=== PATIENT | female | born 1980 | race African-American/Black ===

== ENCOUNTER 2017-04-04 11:29 | Emergency (ER) | payer BC, OTHER ==
[~2017-04-04] VITALS: Ht 152.4 cm; Wt 94.3 kg
[~2017-04-04 11:29] MED LIST: AMOXICILLIN; AMOXICILLIN875 MG PO; IBUPROFEN 200200 M1 PO; NAPROSYN500 MG PO
[2017-04-04] MEDS ORDERED: NORCO 5-325 TA1 EACH PO (12:46)
[2017-04-04 13:17] VITALS: BP 145/112
== END 2017-04-04 13:18 | disposition home or self-care (01) ==
LOC: ER 11:29
DX: K43.9 Ventral hernia without obstruction or gangrene (principal); J45.909 Unspecified asthma, uncomplicated; F17.210 Nicotine dependence, cigarettes, uncomplicated

== ENCOUNTER → 2017-07-31 | Emergency (ER) | payer BC, OTHER ==
[~2017-07-31] VITALS: Ht 152.4 cm; Wt 93.0 kg
[~2017-07-31] MED LIST changes: +NORCO 5-325 TA1 EACH PO
== END ==
LOC: ER 13:40
DX: Z53.21 Procedure and treatment not carried out due to patient leaving prior to being seen by health care provider (principal)